=== PATIENT | female | born 1985 | race Caucasian/White ===

== ENCOUNTER 2023-04-19 07:02 | Inpatient (IN) | payer OTHER, SELFPAY ==
[2023-04-19 07:12] VITALS: BP 121/85; BMI 27.5
[2023-04-19] MEDS: LR 1000 IV (07:40)
[2023-04-19 07:44] LABS: % Basophils 0.3 % (0-2); % Eosinophils 0.2 % (0-6); % Immature Granulocytes 0.8 % (0-0.5); % Monocytes 7.1 % (1.7-9.3); % Neutrophils 74.6 % (42.2-75.2); Absolute Immature Granulocytes 0.1 10^3/uL (0-0.05); Absolute Lymphocytes 2.2 10^3/uL (1.2-3.4); Absolute Monocytes 0.9 10^3/uL (0.1-0.6); Absolute Neutrophils 9.7 10^3/uL (1.4-6.5); Hematocrit 37.1 % (37.0-47.0); Hemoglobin 12.9 g/dL (12.0-16.0); Mean Corp Hgb Conc. 34.8 g/dL (33.0-37.0); Mean Corpuscular Hgb 30.4 pg (27.0-31.0); Mean Corpuscular Volume 87.3 fL (81.0-99.0); Mean Platelet Volume 9.2 fL (7.4-10.4); Nucleated Red Blood Cells % 0 %; Platelet Count 240 10^3/uL (130-400); Red Blood Cell Count 4.25 10^6/uL (4.20-5.40); Red Cell Dist. Width 13.9 % (11.5-14.5)
[2023-04-19] MEDS: FENTANYL/BUPIVACAINE 100 EPIDURAL (07:53)
[2023-04-19] MEDS: SUBLIMAZE 100 MCG EPIDURAL (07:53)
[2023-04-19] MEDS: MOTRIN 600 MG PO ×2 (14:05→19:46)
[2023-04-20 05:24] LABS: Hematocrit 29.1 % (37.0-47.0); Hemoglobin 10.1 g/dL (12.0-16.0)
[2023-04-20] MEDS: MOTRIN 600 MG PO (05:25)
--- NOTE | 2023-04-20 17:00 | CHAP ---
A [email or web address] rastafarian was requested for baby Jessenia, which was provided, along with emotional and spiritual support.
[2023-04-20] MEDS: TYLENOL 650 MG PO (17:23)
[2023-04-21] MEDS: SENOKOT-S 1 TABLET PO (08:34)
[2023-04-21] MEDS: FEOSOL 325 MG PO (08:34)
[2023-04-23 14:49] LABS: Syphilis/T. pallidum Ab Reflex Negative (Negative)
== END 2023-04-21 13:04 | disposition home or self-care (01) | DRG 807 ==
LOC: LDRP 07:02
PROVIDERS: Obstetrics & Gynecology; ADMITTING PHYSICIAN Obstetrics & Gynecology
PROC: 6A550ZT Pheresis of Cord Blood Stem Cells, Single (ICD-10-PCS; 2023-04-19)
PROC: 0HQ9XZZ Repair Perineum Skin, External Approach (ICD-10-PCS; 2023-04-19)
PROC: 10E0XZZ Delivery of Products of Conception, External Approach (ICD-10-PCS; 2023-04-19)
DX: O48.0 Post-term pregnancy (principal); Z37.0 Single live birth; Z3A.40 40 weeks gestation of pregnancy; Z88.0 Allergy status to penicillin; Z87.442 Personal history of urinary calculi; O90.81 Anemia of the puerperium; D64.9 Anemia, unspecified
CPT/HCPCS: 36415; 85014; 85018; 85025; 86780; 86850; 86900; 86901

== ENCOUNTER → 2023-11-12 08:08 | Outpatient (REF) | payer OTHER, SELFPAY | LOC: HWRAD 08:08 | PROVIDERS: ATTENDING PHYSICIAN Surgery; FAMILY PHYSICIAN Internal Medicine | DX: N20.0 Calculus of kidney (principal) | CPT/HCPCS: 76775 ==